=== PATIENT | female | born 1960 | race Caucasian/White ===

== ENCOUNTER 2017-04-19 11:34 | Emergency (ER) | payer BC ==
[2017-04-19] MEDS ORDERED: Ondansetron 4 MG/2 ML SDV IVPUSH ONE (12:11)
[2017-04-19] MEDS ORDERED: Sodium Chloride 0.9% 10 ML Syringe FLUSH PRN (12:11)
[2017-04-19] MEDS ORDERED: HYDROmorphone 0.5 MG/0.5 ML Syringe IVPUSH ONE (12:11)
--- NOTE | 2017-04-19 12:19 | EDM.PDOC ---
ED HPI GENERAL MEDICAL PROBLEM - General Chief Complaint: Upper Extremity Injury/Pain Stated Complaint: RT SHOULDER INJURY Time Seen by Provider: 04/19/17 12:05 Source of Information: Reports: Patient History Limitations: Reports: No Limitations - History of Present Illness INITIAL COMMENTS - FREE TEXT/NARRATIVE: Patient is a 56-year-old female who presents to the ED complaining of right shoulder pain. Patient states this morning while cleaning cupboards she was standing on a bar stool and fell approximately 4 feet landing on the affected shoulder. Patient states she heard a crack and has since been experiencing increasing pain. She is unable to abduct her arm secondary to pain. She has no sensory or motor deficits distally. She denies loss of consciousness, head/neck/ back pain, nausea or vomiting, numbness or tingling, vision changes, headache, or any additional complaints Pain is currently a 5/10 localized to the right shoulder. She has not taken anything recently. This happened approximately 15 minutes prior to arrival to the ED. Past history hypertension taking losartan. Surgical history none stated. Patient does drink alcohol 2-3 drinks every night. Denies being an alcoholic. Last drink was last evening. She denies recreational drug or smoking hx. Onset: Today, Sudden Duration: Constant, Waxing/Waning Location: Reports: Other (right shoulder) Quality: Reports: Ache, Sharp, Stabbing, Throbbing Severity: Moderate Improves with: Reports: None Worsens with: Reports: Other (palpation), Movement Context: Reports: Trauma Associated Symptoms: Reports: No Other Symptoms Treatments BLEACHER LARD: Reports: Other (see below) (none stated) Right Shoulder Pain Score (Numeric/FACES): 5 - Related Data Allergies Allergy/AdvReac Type Severity Reaction Status Date / Time No Known Allergies Allergy Verified 04/19/17 11:49 Home Meds: Home Meds Acetaminophen/HYDROcodone [Weld 325-5 MG] 1 tab PO Q6H PRN #30 tablet 04/19/17 [Rx] Losartan [Cozaar] 1 tab PO DAILY 04/19/17 [History] Multivitamin [Multivitamins] 1 tab PO DAILY 04/19/17 [History] Past Medical History Cardiovascular History: Reports: Hypertension - Past Surgical History GI Surgical History: Reports: Colonoscopy Social & Family History - Tobacco Use Smoking Status *Q: Never Smoker - Caffeine Use Caffeine Use: Reports: Soda - Recreational Drug Use Recreational Drug Use: No Review of Systems - Review of Systems Review Of Systems: ROS reveals no pertinent complaints other than HPI. Trauma Exam - Physical Exam Exam: See Below Exam Limited By: No Limitations General Appearance: Reports: Alert, WD/WN, Mild Distress Head: Reports: Atraumatic, Normocephalic Eyes: Bilateral Eye: EOMI, PERRL Ears: Reports: Hearing Grossly Normal Nose: Reports: Normal Inspection Throat/Mouth: Reports: Normal Voice, No Airway Compromise Neck: Reports: Non-Tender, Full Range of Motion, Normal Alignment, Normal Inspection Respiratory Exam: Reports: No Respiratory Distress, Lungs Clear, Normal Breath Sounds, No Accessory Muscle Use, Chest Non-Tender Cardiovascular: Reports: Normal Peripheral Pulses, Regular Rate, Rhythm GI/Abdominal: Reports: Normal Bowel Sounds, Soft, Non-Tender, No Distention Back: Reports: Full Range of Motion, Normal Inspection, Non-Tender Extremities: Other (deformity noted to the superior aspect of the right humerus with increased pain noted in. Questionable proximal humerus head fracture with bony antibiotics noted. Shoulders symmetric with no scarring. She does have some pain along the posterior border of the right shoulder. Clavicle is intact with no bony abnormalities, pain, swelling on palpation. Radial and ulnar pulses intact. cap refill <2. ) Neurologic: Reports: No Motor/Sensory Deficits, Alert, Normal Mood/Affect, Oriented x 3 Skin: Reports: Normal Color, Warm/Dry Course - Vital Signs Last Recorded V/S: Last Vital Signs Temp 97.8 F 04/19/17 11:46 Pulse 78 04/19/17 13:37 Resp 16 04/19/17 13:37 BP 126/82 04/19/17 13:37 Pulse Ox 99 04/19/17 13:37 - Orders/Labs/Meds Orders: Active Orders 24 hr Category Date Time Status Peripheral IV Care [RC] . DIRECTED Care 04/19/17 12:11 Active Shoulder Comp Rt [CR] Stat Exams 04/19/17 12:11 Taken Peripheral IV Insertion Adult [OM.PC] Stat Oth 04/19/17 12:11 Ordered Meds: Medications Discontinued Medications Generic Name Dose Route Start Last Admin Trade Name Freq PRN Reason Stop Dose Admin Hydromorphone HCl 0.5 mg 04/19/17 12:11 04/19/17 12:18 Dilaudid IVPUSH 04/19/17 12:12 0.5 mg ONETIME ONE Administration Ondansetron HCl 4 mg 04/19/17 12:11 04/19/17 12:16 Zofran IVPUSH 04/19/17 12:12 4 mg ONETIME ONE Administration Sodium Chloride 10 ml 04/19/17 12:11 04/19/17 12:20 Saline Flush FLUSH 10 ml ASDIRECTED PRN Administration Keep Vein Open - Re-Assessments/Exams Free Text/Narrative Re-Assessment/Exam: 04/19/17 12:12 Order a peripheral IV, Dilaudid 0.5 mg IVP, and Zofran 4 mg IVP. Will obtain x-ray of the right shoulder. Have a high suspicion that she may have fractured the neck of the right humerus. She does have some pain posteriorly to the right shoulder. Thus ordered x-ray of the shoulder to further delineate etiology. 04/19/17 [address] Rosen [place] [employer] orthopedic surgeon. She did review the x-rays and notes humerus is impacted with degrees of angulation within acceptable limits. Suggests sling and swath with adequate pain control. Patient will need to be evaluated in the clinic the middle to end of next week. Sling and swath ordered to be applied. Discharge instructions as documented. Prescription for norco provided. Departure - Departure Time of Disposition: 13:03 Disposition: Home, Self-Care 01 Condition: good Clinical Impression: Fracture of humerus Qualifiers: Encounter type: initial encounter Humerus Location: proximal Fracture type: closed Fracture morphology: unspecified fracture morphology Laterality: right Qualified Code(s): S42.201A - Unspecified fracture of upper end of right humerus , initial encounter for closed fracture - Discharge Information Prescriptions: Acetaminophen/HYDROcodone [Weld 325-5 MG] 1 tab PO Q6H PRN #30 tablet PRN Reason: Pain (Severe 7-10) Instructions: Humerus Fracture Treated With Immobilization, Rtin-yo-Tuso Forms: ED Department Discharge Additional Instructions: Leave sling and swath on until [facility] Only taking off to change and or bath. Call her clinic Friday to schedule an appt for the middle to end of next week. Apply ice to the affected area 6 times daily, 20 minutes in duration, do not apply ice directly on the skin. For pain take tylenol 650mg every 6 hours and ibuprofen 600mg every 6 hours in alternating fashion with food. Drink plenty of water. For severe pain take norco 1 tab every 4 to 6 hours. Take one capful of miralax daily with copious amounts of water while on narcotics. Narcotic pain medications can cause constipation. Return to the E.D. for worsening pain, n/t , or any neurological deficits. No driving today nor while on narcotics. Refrain from alcohol use while on narcotics. - My Orders Last 24 Hours: My Active Orders 04/19/17 12:11 Peripheral IV Care [RC] . DIRECTED Shoulder Comp Rt [CR] Stat Peripheral IV Insertion Adult [OM.PC] Stat - Assessment/Plan Last 24 Hours: My Active Orders 04/19/17 12:11 Peripheral IV Care [RC] . DIRECTED Shoulder Comp Rt [CR] Stat Peripheral IV Insertion Adult [OM.PC] Stat
[2017-04-19 13:39] VITALS: BP 126/82
--- NOTE | 2017-04-21 07:37 | CR ---
Right shoulder: Four views of the right shoulder were obtained. Comparison: No previous study. Impacted fracture is identified within the proximal humerus. Mild comminution is seen. No additional fracture or other bony abnormality is identified. Impression: 1. Proximal humeral fracture as noted above. Diagnostic code #3
== END 2017-04-19 13:20 | disposition home or self-care (01) ==
LOC: JD.ED 11:34
DX: S42.201A Unspecified fracture of upper end of right humerus, initial encounter for closed fracture (principal); I10 Essential (primary) hypertension; Z79.899 Other long term (current) drug therapy; W17.89XA Other fall from one level to another, initial encounter
CPT/HCPCS: 73030; 96374; 96375; 99284; J1170; J2405; J7050